=== PATIENT | female | born 1945 | race Caucasian/White ===

== ENCOUNTER 2016-07-25 09:59 | Outpatient (CLI) | payer MEDICARE ==
[~2016-07-25] VITALS: Ht 144.8 cm; Wt 62.3 kg
--- NOTE | ~2016-07-25 | HEMODYNAMI ---
PATIENT:STEFANIE PRATER MEDICAL RECORD: [id number] : 49 LOCATION:[facility] ADMISSION DATE: 07/25/16 Generatedon:07/25/201614:50 Patient name: STEFANIE PRATER Patient #: [id number] SSN: D OB: 1945 Date of study: 07/25/2016 Page: Of Hemodynamic Procedure Report Patient Data Patient Demographics Procedure consent was obtained First Name: STEFANIE Gender: Female Last Name: JOSI : 1945 Middle Initial: A Age: 70 year(s) Patient #: [id number] Race: Unknown Additional ID: [id number] Contact details [address]: [address] [place] [address] State: [place] City: [place] Zip code: [address] Past Medical History Allergies Allergen Reaction Date Comments Reported Codeine 07/25/2016 Penicillins 07/25/2016 Admission Admission Data Admission Date: 07/25/2016 Admission Time: 9:59 Procedure Procedure Types Cath Procedure Peripheral Cath Diagnostic Procedure Kyphoplasty Kyphoplasty Lumbar Procedure Description Procedure Date Procedure Date: 07/25/2016 Procedure Start Time: 13:59 Procedure Staff Name Function Silver Vargas MD Performing Physician Garett Arevalo RT Scrub Alise Gupta RT Monitor Kiarra Flores RN Nurse Eloy Saldivar CRNA Additional personnel Procedure Data Cath Procedure Fluoroscopy Diagnostic fluoroscopy Total fluoroscopy Time: 8 time: 8 min min Diagnostic fluoroscopy Total fluoroscopy dose: 330 dose: 330 mGy mGy Procedure Medications Medication Administration Route Dosage Vancomycin I.V.P.B 1 g Hemodynamics Rest Heart Rate: 78 (bpm) Snapshots Pre Cath Intra NCS Post Cath Vital Signs Time Heart Resp SPO2 NIBP (mmHg) Rhythm Pain Sedation Rate (ipm) (%) Status Level (bpm) 13:46:29 75 20 95 190/108(158) NSR 6 (11) 10(A) , Intense 13:50:57 74 17 99 196/101(154) NSR 6 (11) 10(A) , Intense 13:55:25 75 13 99 174/98(148) NSR 6 (11) 10(A) , Intense 13:59:43 72 19 96 129/74(94) NSR 0 (11) 9(A) , No pain 14:03:57 69 24 96 121/73(95) NSR 0 (11) 9(A) , No pain 14:08:13 62 23 93 106/53(84) NSR 0 (11) 9(A) , No pain 14:12:27 62 23 93 107/54(75) NSR 0 (11) 9(A) , No pain 14:16:41 62 23 91 103/54(73) NSR 0 (11) 9(A) , No pain 14:20:51 62 21 90 106/61(81) NSR 0 (11) 9(A) , No pain 14:25:03 62 22 90 104/57(84) NSR 0 (11) 9(A) , No pain 14:29:09 64 24 91 115/66(89) NSR 0 (11) 9(A) , No pain 14:34:08 63 16 92 Measuring NSR 0 (11) 9(A) , No pain 14:34:14 64 17 92 156/78(122) NSR 0 (11) 9(A) , No pain 14:38:36 61 21 97 160/87(138) NSR 0 (11) 9(A) , No pain 14:42:36 63 19 96 No Cuff NSR 0 (11) 10(A) , No pain 14:46:50 Aborted NSR 0 (11) 10(A) , No pain Medications Time Medication Route Dose Verified Delivered Reason Notes Effectiven ess by by 14:00:08 Vancomycin I.V.P.B 1 g Kiarra Kiarra Per Mark Flores protocol RN field contact person Log Time Note 13:17:18 Time tracking: Regular hours 13:17:24 Plan of Care:Hemodynamics will remain stable., Cardiac rhythm will remain stable., Comfort level will be maintained., Respiratory function will remain adequate., Patient/ family verbilizes understanding of procedure., Procedure tolerated without complication., Recovers from procedure without complications.. 13:17:46 Patient received from Outpatients to IR Alert and oriented. Tansferred to table in Prone position. 13:17:49 Use device set IR Diagnostic 13:17:50 See anesthesia records for assessment. 13:17:51 Sterile Angiographic Pack opened to sterile field. 13:17:52 Bag Decanter opened to sterile field. 13:18:11 Warm blankets applied, and marti hugger turned on for patient comfort. 13:18:12 Correct patient and procedure confirmed by team. 13:18:15 Signed procedure consent form obtained from patient. 13:19:43 See anesthesia record for all sedation, medication, oxygen, vital signs and level of consciousness during procedure. 13:24:38 T4 [employer] BONE BX DEVICE SZ2 opened to sterile field. 13:24:39 Kyphon FENCE RIDER KIT opened to sterile field. 13:24:41 Presence [email or web address] 15/2 CDS SYSTEM opened to sterile field. 13:24:45 - 13:45:11 ECG and BP/O2 sat monitors applied to patient. 13:45:13 Vital chart was started 13:45:14 Baseline sample Acquired. 13:45:14 Full Disclosure recording started 13:45:16 - 13:52:09 H&P Date Dictated: 07/25/2016 Within 30 days and on chart.. 13:52:15 Family in waiting room. 13:52:18 Patient NPO since Midnight. 13:52:34 Patient allergic to Codeine 13:52:42 Patient allergic to Penicillins 13:52:49 Is patient on blood thinner?No 13:54:28 IV patent on arrival in right forearm with 0.9% NaCl at KVO. 13:54:39 Lumbar area was prepped with dura-prep and draped in sterile fashion 13:54:42 Alarms reviewed by RPrimo NPrimo 13:54:43 Sharps counted by scrub and verified by R.N. 13:54:46 Physician arrived 13:55:51 Physical assessment completed. ASA score P 3 - A patient with severe systemic disease as per Eloy Saldivar CRNA. 13:55:59 Sedation plan: TIVA Propofol 13:56:04 --------ALL STOP TIME OUT------ 13:56:05 Final Timeout: patient, procedure, and site verified with staff and physician. All members of the team are in agreement. 13:59:55 Procedure started. 14:00:08 Vancomycin 1 g I.V.P.B was administered by Kiarra Flores RN; Per protocol; 14:04:18 Jamshidi needle introduced. 14:09:31 Bone bx needle placed. 14:16:10 Kyphoplasty balloon introduced. 14:28:02 Cement introduced to vertebral body. 14:30:03 Jamshidi needle removed. 14:35:53 Procedure ended.(Physican Out) 14:36:10 Fluoroscopy time 08.00 minutes. 14:36:20 Flurop Dose total: 330 14:36:20 Fluoroscopy dose: 330 mGy 14:36:22 Sharps counted by scrub and verified by R.N. 14:36:27 Procedure and supply charges have been captured, reviewed, submitted an d are correct. 14:49:59 Vital chart was stopped Device Usage Item Name Manufacture Quantity Catalog Hospital Part Current Minima l Lot# / Number Charge Number Stock Stock Serial# Code Kyphon BONE Medtronic 1 [id number] 5 BX DEVICE SZ2 Kyphon Medtronic 1 [id number] 5 FENCE RIDER KIT KYPHON EMIR Medtronic 1 [id number] 5 EXPRESS 15/2 CDS SYSTEM Sterile Cardinal 1 [id number] 5 Angiographic Health Pack Bag Decanter Microtek 1 [id number] 5 [employer] Signature Audit [place] Stage Time Signature Unsigned Intra-Procedure 07/25/2016 Kiarra 2:49:57 PM Mark MOELLER Signatures Monitor : Alise Gupta RT Signature : Date : Time : [facility] [address] [place] [address]
[2016-07-25 10:52] LABS: BASOPHILS 0.3 % (0.0-2.0); EOSINOPHILS 0.8 % (0-7); HEMATOCRIT 47.7 % (36.0-48.0); IMMATURE GRANULOCYTES 0.4 % (0-5); LYMPHOCYTES 18.4 % (15-50); MCH 33.1 pg (26.0-34.0); MCHC 35.6 g/dL (31.0-37.0); MCV 92.8 fL (80.0-100.0); MONOCYTES 11.1 % (2-11); PLATELET COUNT 272 10x3/uL (130-400); RBC 5.14 10x6/uL (4.00-5.40); RDW 12.6 % (11.5-14.5); WBC 11.2 10x3/uL (4.8-10.8)
[2016-07-25 11:03] LABS: CALC OSMOLALITY 264 mosm/kg (275-300); CALCIUM 9.1 mg/dL (8.5-10.1); CARBON DIOXIDE 26.1 mmol/L (21.0-32.0); CHLORIDE - SERUM 96 mmol/L (98-107); CREATININE - SERUM 0.7 mg/dL (0.6-1.3); GLUCOSE 103 mg/dL (74-106); SODIUM 133 mmol/L (136-145); UREA NITROGEN 9 mg/dL (7-18); eGFR NON AFRICAN AMERICAN 88 mL/min (90-120)
[2016-07-25 11:04] LABS: APTT 33.8 SECONDS (22.8-39.4); INR 1.05 (0.85-1.17); PROTIME 13.6 SECONDS (11.6-15.0)
[2016-07-25 11:08] LABS: POTASSIUM - SERUM 2.5 mmol/L (3.5-5.1)
[2016-07-25 11:11] LABS: APPEARANCE CLEAR (CLEAR); BILIRUBIN NEGATIVE (NEGATIVE); COLOR YELLOW (YELLOW); GLUCOSE NEGATIVE (NEGATIVE); KETONE NEGATIVE (NEGATIVE); LEUKOCYTE ESTERASE NEGATIVE (NEGATIVE); NITRITE NEGATIVE (NEGATIVE); PROTEIN NEGATIVE (NEGATIVE); SPECIFIC GRAVITY 1.005 (1.005-1.020); UROBILINOGEN NORMAL (NORMAL)
[2016-07-25] MEDS ORDERED: LEVOXYL50 MCG PO (11:30)
[2016-07-25] MEDS ORDERED: VITAMIN D31000 UNIT PO (11:31)
[2016-07-25] MEDS ORDERED: LISINOPRIL-HCTZ1 T11 PO (11:31)
[2016-07-25] MEDS ORDERED: HYDROCODONE-APA1 TAB PO (11:32)
[2016-07-25] MEDS ORDERED: K-DUR20 MEQ PO (11:32)
[2016-07-25] MEDS ORDERED: VENTOLIN HFA18 GM INH (11:32)
[2016-07-25] MEDS ORDERED: KRILL OIL 1,001 EAC1 PO (11:33)
[2016-07-25 11:42] VITALS: BP 210/85; Ht 144.8 cm; Wt 62.3 kg
--- NOTE | 2016-07-25 12:14 | NUR ---
1210- PT COMPLAINING OF IV BURNING DECREASED POTASSIUM RATE TO 75 CC/HR WILL CONTINUE MONITOR
--- NOTE | 2016-07-25 13:07 | NUR ---
1255-PATIENT DISLODGED IV--RESITED X 1 22G ANGIOCATH TO R ARM.
--- NOTE | 2016-07-25 18:33 | NUR ---
1530 PATIENT WANTING TO GET UP INFORMED FOR 3X SHE HAS TO LAY FLAT TAKING B/P CUFF OFF, FRIEND ASKING CAN SHE RAISE HER HEAD INFORED FOR 4X SHE COULDNT RAISE UP , 1630 NO CHANGE B/P UP 226/120 DR JAIN AND SHAWN IN ROOM NEW ORDERS 1640 MEDICATION GIVEN FOR B/P 1700 B/P DOWN TO 150/85 PATIENT WANTING TO GO 1715 IV DC WITH CATHER TIP INTACT PASS 3 DOSE OF K+
--- NOTE | 2016-07-25 18:53 | NUR ---
[address] ON POST OP SHEET
== END 2016-07-25 17:30 | disposition home or self-care (01) ==
LOC: D.OPS 09:59 → D.RAD 09:59 → D.SP 12:00 → D.RAD 12:00 → D.OPS 17:30
PROVIDERS: General Practice
DX: S32.018A Other fracture of first lumbar vertebra, initial encounter for closed fracture (principal)